=== PATIENT | male | born 1935 | race Caucasian/White ===

== ENCOUNTER → 2019-11-11 | Outpatient (CLI) | payer MEDICARE ==
[2019-11-11 17:09] LABS: African American GFR (CKD) 53.1 (60.0-200.0); Albumin 4.1 g/dL (3.80-4.90); Albumin/Globulin Ratio 1.95 (1.60-3.17); BUN/Creat Ratio 19.29 Ratio (12.00-20.00); Calcium 8.9 mg/dL (8.7-10.3); Chol/HDL Ratio 2.25; Globulin 2.1 g/dL (1.6-3.3); LDL Cholesterol,Calculated 50.6 mg/dL (0.0-131.0); Magnesium 2.1 mg/dL (1.5-2.4); Non-African American GFR(CKD) 45.8 (60.0-200.0); Potassium 4.1 mmol/L (3.5-5.5); Total Bilirubin 1.2 mg/dL (0.3-1.2); Total Protein 6.2 g/dL (6.2-8.2); VLDL Calculation 19.4 mg/dL (5.00-40.00)
== END | disposition home or self-care (01) ==
LOC: LABWHC1 09:15
PROVIDERS: ATTEND Internal Medicine Cardiovascular Disease
DX: I25.10 Atherosclerotic heart disease of native coronary artery without angina pectoris (principal); E78.5 Hyperlipidemia, unspecified; I49.3 Ventricular premature depolarization
CPT/HCPCS: 36415; 80053; 80061; 83735

== ENCOUNTER → 2020-06-15 | Outpatient (CLI) | payer MEDICARE ==
--- NOTE | 2020-06-15 12:08 | US ---
EXAMINATION TYPE: US abdomen limited DATE OF EXAM: 06/15/2020 COMPARISON: NONE CLINICAL HISTORY: N18.9 CKD, E80.7. Biliary disorder EXAM MEASUREMENTS: Liver Length: 17.1 cm Gallbladder Wall: 0.2 cm CBD: 0.4 cm Right Kidney: 11.5 x 5.2 x 5.7 cm Pancreas: Obscured by bowel gas, visualized portions appear wnl Liver: Measuring enlarged. Normal less than 15.5 cm Gallbladder: Possible polyp visualized measuring 0.4 cm Evidence for sonographic Bray's sign: No CBD: wnl as visualized Right Kidney: No hydronephrosis. Loss of corticomedullary differentiation IMPRESSION: 1. Hepatomegaly. 2. Gallbladder polyp
== END | disposition home or self-care (01) ==
LOC: RADUSWWP 08:41
PROVIDERS: ATTEND Family Medicine
DX: K82.4 Cholesterolosis of gallbladder (principal); R16.0 Hepatomegaly, not elsewhere classified; N18.9 Chronic kidney disease, unspecified; E80.7 Disorder of bilirubin metabolism, unspecified
CPT/HCPCS: 76705

== ENCOUNTER → 2020-06-25 | Outpatient (CLI) | payer MEDICARE ==
--- NOTE | 2020-06-26 07:05 | US ---
EXAMINATION TYPE: US kidneys/renal and bladder DATE OF EXAM: 06/25/2020 COMPARISON: NONE CLINICAL HISTORY: I12.9 CKD. CKD EXAM MEASUREMENTS: Right Kidney: 10.3 x 5.0 x 5.4 cm Left Kidney: 10.4 x 5.1 x 5.5 cm Right Kidney: no hydronephrosis, nephrolithiasis or masses seen, cortical thinning Left Kidney: no hydronephrosis, nephrolithiasis or masses seen, cortical thinning Bladder: not fully distended Bladder limited by incomplete distention. IMPRESSION: Bilateral cortical thinning compatible with chronic medical renal disease.
== END | disposition home or self-care (01) ==
LOC: RADUSWWP 16:09
PROVIDERS: ATTEND Family Medicine
DX: I12.9 Hypertensive chronic kidney disease with stage 1 through stage 4 chronic kidney disease, or unspecified chronic kidney disease (principal)
CPT/HCPCS: 76770